=== PATIENT | male | born 1950 | race Caucasian/White ===

== ENCOUNTER 2017-03-20 11:52 | Emergency (ER) | payer OTHER ==
--- NOTE | 2017-03-20 11:58 | PHYS DOC ---
Adult General Chief Complaint Chief Complaint: left wrist laceration HPI HPI Patient is a 66 year old male who presents with accidentally left wrist. He was sawing when the chainsaw slipped and CAD his left wrist. He is unsure his last tetanus shot was. He states his left fourth and fifth digits are numb and he has pain in the left forearm when he tries to wiggle them. Patient is right hand dominant. Review of Systems Review of Systems Constitutional: Denies fever or chills [] Eyes: Denies change in visual acuity, redness, or eye pain [] HENT: Denies nasal congestion or sore throat [] Respiratory: Denies cough or shortness of breath [] Cardiovascular: No additional information not addressed in HPI [] GI: Denies abdominal pain, nausea, vomiting, bloody stools or diarrhea [] : Denies dysuria or hematuria [] Musculoskeletal: Denies back pain or joint pain [] Integument: Denies rash or skin lesions [] Neurologic: Denies headache, focal weakness or sensory changes [] Endocrine: Denies polyuria or polydipsia [] Current Medications Current Medications Current Medications Medications (Trade) Dose Ordered Sig/Moraima Start Time Stop Time Status Last Admin Dose Admin Cefazolin Sodium 50 ml @ 100 mls/hr 1X ONCE 03/20/17 12:15 03/20/17 12:44 DC 03/20/17 12:21 100 MLS/HR Diphtheria/ Tetanus/Acell Pertussis (Boostrix) 0.5 ml ONCE ONCE 03/20/17 12:30 03/20/17 12:31 DC 03/20/17 12:26 0.5 ML Morphine Sulfate 2 mg PRN Q15MIN PRN 03/20/17 12:00 03/21/17 11:59 Allergies Allergies Allergies Coded Allergies Type Severity Reaction Last Updated Verified No Known Drug Allergies 03/20/17 No Physical Exam Physical Exam Constitutional: Well developed, well nourished, no acute distress, non-toxic appearance. [] HENT: Normocephalic, atraumatic, bilateral external ears normal, oropharynx moist, no oral exudates, nose normal. [] Eyes: PERRLA, EOMI, conjunctiva normal, no discharge. [] Neck: Normal range of motion, no tenderness, supple, no stridor. [] Cardiovascular:Heart rate regular rhythm, no murmur [] Lungs & Thorax: Bilateral breath sounds clear to auscultation [] Abdomen: Bowel sounds normal, soft, no tenderness, no masses, no pulsatile masses. [] Skin: Warm, dry, no erythema, no rash. [] Back: No tenderness, no CVA tenderness. [] Extremities: 3 cm x 1 cm laceration through the left medial wrist, unable to flex or extend fourth and fifth digits, decreased sensation to light touch in the fourth and fifth digits on the left hand, no cyanosis, no clubbing, no edema. [] Neurologic: Alert and oriented X 3, normal motor function, normal sensory function, no focal deficits noted. [] Psychologic: Affect normal, judgement normal, mood normal. [] Current Patient Data Lab Values Laboratory Tests Test 03/20/17 11:54 03/20/17 12:09 03/20/17 12:10 03/20/17 12:13 White Blood Count 7.7 x10^3/uL (4.0-11.0) Red Blood Count 5.03 x10^6/uL (4.30-5.70) Hemoglobin 15.9 g/dL (13.0-17.5) Hematocrit 46.2 % (39.0-53.0) Mean Corpuscular Volume 92 fL (79-100) Mean Corpuscular Hemoglobin 32 pg (25-35) Mean Corpuscular Hemoglobin Concent 34 g/dL (31-37) Red Cell Distribution Width 13.1 % (11.5-14.5) Platelet Count 179 x10^3/uL (140-400) Neutrophils (%) (Auto) 73 % (31-73) Lymphocytes (%) (Auto) 20 % (24-48) L Monocytes (%) (Auto) 6 % (0-9) Eosinophils (%) (Auto) 1 % (0-3) Basophils (%) (Auto) 1 % (0-3) Neutrophils # (Auto) 5.6 x10^3uL (1.8-7.7) Lymphocytes # (Auto) 1.6 x10^3/uL (1.0-4.8) Monocytes # (Auto) 0.4 x10^3/uL (0.0-1.1) Eosinophils # (Auto) 0.1 x10^3/uL (0.0-0.7) Basophils # (Auto) 0.1 x10^3/uL (0.0-0.2) POC Troponin I 0.00 ng/ml (<0.08) Prothrombin Time 12.9 SEC (11.7-14.0) Prothrombin Time INR 1.0 (0.8-1.1) PTT 25 SEC (24-38) Sodium Level 145 mmol/L (136-145) Potassium Level 3.7 mmol/L (3.5-5.1) Chloride Level 108 mmol/L (98-107) H Carbon Dioxide Level 25 mmol/L (21-32) Anion Gap 12 (6-14) 20 mmol/L (6-14) H Blood Urea Nitrogen 17 mg/dL (8-26) Creatinine 1.5 mg/dL (0.7-1.3) H Estimated GFR (Cockcroft-Gault) 47.1 Glucose Level 178 mg/dL (70-99) H 175 mg/dL (70-99) H Lactic Acid Level 2.7 mmol/L (0.4-2.0) H Calcium Level 9.0 mg/dL (8.5-10.1) Ethyl Alcohol Level < 10 mg/dL (0-10) POC Hemoglobin 16.3 g/dL (14-18) POC Hematocrit 48 % (37-52) POC Sodium 144 mmol/L (135-145) POC Potassium 3.7 mmol/L (3.5-5.0) POC Chloride 107 mmol/L (98-110) POC Total CO2 21 mmol/L (23-32) L POC Blood Urea Nitrogen 16 mg/dL (8-26) POC Creatinine 1.3 mg/dL (0.5-1.4) POC Ionized Calcium (Gabby) 1.20 mmol/L (1.13-1.32) Laboratory Tests 03/20/17 11:54 Laboratory Tests 03/20/17 12:10 03/20/17 12:13 EKG EKG [] Radiology/Procedures Radiology/Procedures [facility] [address] [place], [place] [id number] IMAGING REPORT Signed PATIENT: NATALIA DAUGHERTY ACCOUNT: [id number] : 1950 LOCATION: ER AGE: 66 SEX: M EXAM STATUS: REG ER ORD. PHYSICIAN: DHRUV SAGASTUME MD REASON: trauma PROCEDURE: HAND LEFT 3V INDICATION: trauma COMPARISON: None. IMPRESSION: Left hand: 3 views obtained. There is a large soft tissue defect seen along the ulnar aspect of the wrist which could be from the patient's injury. There is lucency seen through the distal aspect of the triquetrum as well as the hamate which could be secondary to associated fractures. The scapholunate interval is mildly widened. Cannot exclude a scapholunate ligamentous injury. 2 mm high density structure is seen adjacent to second proximal phalanx distally. Could be secondary to a small foreign body. Alternatively this could be an object on the skin. There is a couple of ossific densities also seen anterior to the proximal carpal row but these appear well-corticated therefore it is possible that these are old or secondary to degenerative changes. DICTATED and SIGNED BY: LESA AMADOR MD DATE: 03/20/17 1300 CC: DHRUV SAGASTUME MD; AMY FLORES MD ~ Impressions: Wrist laceration Course & Med Decision Making Course & Med Decision Making Pertinent Labs and Imaging studies reviewed. (See chart for details) She presented as a trauma activation. Dr. Mckinney came to see the patient and it was decided that we should transfer him to [facility]. I spoke with Dr. Woods regarding his injuries and he agrees with the plan of transferring [facility]. His tetanus is been updated I spoke with [facility] and Dr. Chance excepts the patient for admission. 1 g of Ancef has been started the patient's being transferred emergently to the trauma bay it [facility]. He is in stable condition at this time. The decision to transfer was made about 4 minutes after their arrival the patient to the ER. Dragon Disclaimer Dragon Disclaimer This electronic medical record was generated, in whole or in part, using a voice recognition dictation system. DHRUV SAGASTUME MD Mar 20, 2017 11:58
[2017-03-20] MEDS ORDERED: MORPHINE SULFATE 2 MG/ML DISP.SYRIN. IV/SQ PRN (12:00)
[2017-03-20] MEDS ORDERED: DIPHTH,PERTUSS(ACELL),TET TOX 0.5 ML DISP.SYRIN. VAX IM ONE ×2 (12:14→12:30)
[2017-03-20 12:19] LABS: BASO # 0.1 x10^3/uL (0.0-0.2); BASO % 1 % (0-3); EOS % 1 % (0-3); HEMATOCRIT 46.2 % (39.0-53.0); HEMOGLOBIN 15.9 g/dL (13.0-17.5); LYMPH # 1.6 x10^3/uL (1.0-4.8); LYMPH % 20 % (24-48); MEAN CORPUSCULAR HEMOGLOBIN 32 pg (25-35); MEAN CORPUSCULAR HGB CONC 34 g/dL (31-37); MEAN CORPUSCULAR VOLUME 92 fL (79-100); MONO % 6 % (0-9); NEUT % 73 % (31-73); PLATELET COUNT 179 x10^3/uL (140-400); RED BLOOD COUNT 5.03 x10^6/uL (4.30-5.70); RED CELL DISTRIBUTION WIDTH 13.1 % (11.5-14.5); WHITE BLOOD COUNT 7.7 x10^3/uL (4.0-11.0)
[2017-03-20 12:31] LABS: CREATININE 1.5 mg/dL (0.7-1.3); GFR 47.1; POTASSIUM 3.7 mmol/L (3.5-5.1)
[2017-03-20 12:33] LABS: PROTHROMBIN TIME PATIENT 12.9 SEC (11.7-14.0)
--- NOTE | 2017-03-20 13:06 | RAD ---
INDICATION: trauma COMPARISON: None. IMPRESSION: Left hand: 3 views obtained. There is a large soft tissue defect seen along the ulnar aspect of the wrist which could be from the patient's injury. There is lucency seen through the distal aspect of the triquetrum as well as the hamate which could be secondary to associated fractures. The scapholunate interval is mildly widened. Cannot exclude a scapholunate ligamentous injury. 2 mm high density structure is seen adjacent to second proximal phalanx distally. Could be secondary to a small foreign body. Alternatively this could be an object on the skin. There is a couple of ossific densities also seen anterior to the proximal carpal row but these appear well-corticated therefore it is possible that these are old or secondary to degenerative changes.
[2017-03-20 14:44] LABS: POTASSIUM ISTAT 3.7 mmol/L (3.5-5.0)
== END 2017-03-20 12:33 | disposition short-term general hospital (02) ==
LOC: ER 11:52
DX: S61.512A Laceration without foreign body of left wrist, initial encounter (principal); W29.3XXA Contact with powered garden and outdoor hand tools and machinery, initial encounter; Y93.89 Activity, other specified; Y92.89 Other specified places as the place of occurrence of the external cause; Y99.8 Other external cause status
CPT/HCPCS: 29125; 36415; 73130; 80047; 80048; 83605; 84484; 85027; 85610; 85730; 86850; 86900; 86901; 90471; 90715; 96374; 99285; G0480; J0690

== ENCOUNTER 2017-11-07 22:44 | Emergency (ER) | payer MEDICARE, OTHER ==
[2017-11-08 00:41] LABS: BILIRUBIN,URINE NEGATIVE (NEG); CLARITY,URINE CLEAR; COLOR,URINE YELLOW; GLUCOSE,URINE 100 mg/dL (NEG); NITRITE,URINE NEGATIVE (NEG); PH,URINE 5.5; PROTEIN,URINE NEGATIVE (NEG-TRACE)
[2017-11-08 00:53] LABS: BACTERIA,URINE 0 /HPF (0-FEW); RBC,URINE 0 /HPF (0-2); WBC,URINE OCC /HPF (0-4)
== END 2017-11-08 00:55 | disposition home or self-care (01) ==
LOC: ER 11-08 00:55
DX: S39.012A Strain of muscle, fascia and tendon of lower back, initial encounter (principal); X50.9XXA Other and unspecified overexertion or strenuous movements or postures, initial encounter; Y93.89 Activity, other specified; Y99.8 Other external cause status; Y92.89 Other specified places as the place of occurrence of the external cause
CPT/HCPCS: 74176; 81001; 99285-25